=== PATIENT | male | born 1960 | race Caucasian/White ===

== ENCOUNTER 2021-08-31 03:29 | Emergency (ER) | payer MEDICAID ==
[~2021-08-31] VITALS: Ht 167.6 cm; Wt 100.0 kg
[2021-08-31 05:06] LABS: BASOPHILS % 0.4 % (0.0-2.0); EOSINOPHILS % 0.4 % (0.0-5.0); HEMATOCRIT. 40.3 % (42.0-52.0); HEMOGLOBIN. 14.4 g/dL (14.0-18.0); LYMPHOCYTES % 15.7 % (20.0-50.0); MEAN CORPUSCULAR HEMOGLOBIN 30.8 pg (28.0-32.0); MEAN PLATELET VOLUME 6.9 fl (7.4-10.4); MONOCYTES % 14.4 % (2.0-8.0); NEUTROPHILS % 69.1 % (40.0-76.0); PLATELET 205 x1000/uL (130-400); RED BLOOD CELL COUNT 4.69 mill/uL (4.7-6.1); RED CELL DISTRIBUTION WIDTH 13.7 % (11.6-14.6)
[2021-08-31 05:15] LABS: CHLORIDE 80 mEq/L (98-107)
[2021-08-31] MEDS ORDERED: ONDANSETRON HCL 4MG/2ML INJ IV STA (05:23)
[2021-08-31] MEDS ORDERED: MORPHINE SULFATE 4 MG/ML CPJ (NOT FOR IM USE) IV STA (05:23)
[2021-08-31] MEDS ORDERED: PANTOPRAZOLE SODIUM 40 MG/VIAL IV ONE (05:30)
[2021-08-31] MEDS ORDERED: FOLIC ACID 1 MG, THIAMINE HCL 100 MG, MVI, ADULT NO.1 10 ML in DEXTROSE 5% WATER 1,000 ML IV ONE ×4 (05:30)
[2021-08-31] MEDS ORDERED: SODIUM CHLORIDE 3% 500ML IV SOLN IV SCH (06:00)
[2021-08-31 06:15] LABS: PROTHROMBIN TIME 10.8 sec (9.6-11.0)
[2021-08-31] MEDS: MAGNESIUM/ALUMINUM HYDROXIDE/SIMETHICONE 30ML UDC PO STA ×2 (06:19→08:52)
[2021-08-31] MEDS: MAGNESIUM 2 G PREMIX 50 ML IV ONE ×2 (06:19→07:47)
[2021-08-31 06:24] LABS: PHOSPHORUS 2.1 mg/dL (2.5-4.9)
[2021-08-31] MEDS ORDERED: NICARDIPINE 50 MG in SODIUM CHLORIDE 0.9% 230 ML IV PRN (06:45)
[2021-08-31] MEDS ORDERED: TETANUS, DIPHTHERIA, PERTUSSIS VAC/PF 0.5ML (>10YR OLD) IM ONE (07:00)
[2021-08-31] MEDS ORDERED: SODIUM CHLORIDE 3% 150 ML IV SCH (07:00)
[2021-08-31] MEDS ORDERED: NICARDIPINE 40MG/200ML PREMIX 200 ML IV PRN (07:00)
[2021-08-31] MEDS ORDERED: NIMODIPINE 30MG CAPSULE PO SCH (08:00)
[2021-08-31] MEDS ORDERED: LEVETIRACETAM 500MG PREMIX 100 ML IV ONE ×2 (08:30)
[2021-08-31] MEDS ORDERED: IOHEXOL-350 100 ML BOTTLE ONE (11:41)
[2021-08-31] MEDS ORDERED: MANNITOL 20% 125 ML IV SCH (12:00)
[2021-08-31] MEDS ORDERED: FENTANYL CITRATE 2,500 MCG in SODIUM CHLORIDE 0.9% 200 ML IV PRN (12:00)
[2021-08-31] MEDS ORDERED: MIDAZOLAM HCL 100 MG in SODIUM CHLORIDE 0.9% 100 ML IV PRN (12:00)
[2021-08-31] MEDS ORDERED: ETOMIDATE 2MG/ML 10ML VIAL IV ONE (12:15)
[2021-08-31] MEDS ORDERED: SUCCINYLCHOLINE CHLORIDE 200MG/10ML IV ONE (12:15)
[2021-08-31 12:30] VITALS: BP 144/67
[2021-08-31] MEDS ORDERED: PROPOFOL 10MG/ML 100ML 100 ML IV SCH (12:30)
== END 2021-08-31 12:30 | disposition short-term general hospital (02) ==
LOC: ER 03:49
DX: I60.9 Nontraumatic subarachnoid hemorrhage, unspecified (principal); I72.9 Aneurysm of unspecified site; E87.1 Hypo-osmolality and hyponatremia; I10 Essential (primary) hypertension; E78.00 Pure hypercholesterolemia, unspecified; F17.210 Nicotine dependence, cigarettes, uncomplicated; Z20.822 Contact with and (suspected) exposure to COVID-19; Z71.6 Tobacco abuse counseling; Z88.6 Allergy status to analgesic agent
CPT/HCPCS: 31500; 36415; 70450; 70496; 70498; 71045; 80053; 80320; 83690; 83735; 84100; 85025; 85610; 87426; 90715; 93005; 96365; 96375; 99291; 99406; C9113; J1953; J2270; J2405; J2704; J3411; J3475; J3490; J7070; Q9967; Z7610; 94002; G0480